=== PATIENT | male | born 1960 | race Caucasian/White ===

== ENCOUNTER → 2019-12-18 | Outpatient (CLI) | payer OTHER ==
--- NOTE | 2019-12-18 15:02 | XR ---
EXAMINATION TYPE: XR shoulder complete LT, 3 views DATE OF EXAM: 12/18/2019 Comparison: None Clinical History: 59-year-old male pain after fall from ladder S43.402A Findings: Moderate degenerative joint space narrowing with marginal spurring and subchondral sclerosis at the A C joint. Subacromial space is preserved. No acute fracture, subluxation, or dislocation. Impression: Moderate AC joint OA. No acute osseous abnormality seen.
== END | disposition home or self-care (01) ==
LOC: RADXRMAIN 14:31
PROVIDERS: ATTEND Emergency Medicine
DX: M19.012 Primary osteoarthritis, left shoulder (principal); S43.402A Unspecified sprain of left shoulder joint, initial encounter

== ENCOUNTER → 2019-12-26 | Outpatient (CLI) | payer OTHER ==
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
== END | disposition home or self-care (01) ==
LOC: RADMRIMAIN 15:10
PROVIDERS: ATTEND Emergency Medicine
DX: M75.122 Complete rotator cuff tear or rupture of left shoulder, not specified as traumatic (principal); M12.812 Other specific arthropathies, not elsewhere classified, left shoulder; S43.432A Superior glenoid labrum lesion of left shoulder, initial encounter

== ENCOUNTER 2022-07-25 11:02 | Emergency (ER) | payer OTHER, BC ==
[2022-07-25] MEDS ORDERED: DIPH,PERTUS(ACELL)TETVAC-LF 0.5 ML VIAL IM ONE (11:04)
[2022-07-25] MEDS ORDERED: HYDROmorphone 0.5 MG/0.5 ML SYRINGE IVP STA (11:12)
[2022-07-25 11:16] LABS: Basophils # (A) 0.1 k/uL (0-0.2); Basophils % (A) 1 %; Eosinophils # (A) 0.1 k/uL (0-0.7); Eosinophils % (A) 1 %; HCT 36.1 % (39.0-53.0); HGB 11.4 gm/dL (13.0-17.5); Hypochromasia Slight; Lymphocytes # (A) 3.7 k/uL (1.0-4.8); Lymphocytes % (A) 40 %; MCH 27.5 pg (25.0-35.0); MCHC 31.7 g/dL (31.0-37.0); Mean Platelet Volume 9.7; Monocytes # (A) 0.6 k/uL (0-1.0); Monocytes % (A) 6 %; Neutrophils # (A) 4.6 k/uL (1.3-7.7); Neutrophils % (A) 49 %; Platelet Count 287 k/uL (150-450); RBC 4.15 m/uL (4.30-5.90); RDW 14.4 % (11.5-15.5); WBC 9.4 k/uL (3.8-10.6)
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
[2022-07-25 11:28] LABS: ALT 28 U/L (4-49); AST 49 U/L (17-59); African American GFR (CKD) 85 (>60 ml/min/1.73 sqM); Albumin 3.6 g/dL (3.5-5.0); Alcohol <10 mg/dL; Alkaline Phosphatase 80 U/L (38-126); Anion Gap 11 mmol/L; Blood Urea Nitrogen 23 mg/dL (9-20); Calcium 8.8 mg/dL (8.4-10.2); Carbon Dioxide 21 mmol/L (22-30); Chloride 108 mmol/L (98-107); Glucose 118 mg/dL (74-99); Non-African American GFR(CKD) 73 (>60 ml/min/1.73 sqM); Potassium 3.8 mmol/L (3.5-5.1); Sodium 140 mmol/L (137-145); Total Bilirubin 0.5 mg/dL (0.2-1.3); Total Protein 6.3 g/dL (6.3-8.2)
[2022-07-25 11:35] VITALS: RESP 20
--- NOTE | 2022-07-25 11:36 | XR ---
EXAMINATION TYPE: XR pelvis AP view DATE OF EXAM: 07/25/2022 CLINICAL HISTORY: pain TECHNIQUE: Single view the pelvis is submitted. FINDINGS: No evidence for fracture, dislocation or bony lesion. Joint spaces are well-preserved. S I joints appear symmetric. IMPRESSION: 1. No acute fracture or dislocation seen. ICD 10 NO FRACTURE, INITIAL EVALUATION
--- NOTE | 2022-07-25 11:37 | XR ---
EXAMINATION TYPE: XR knee limited RT DATE OF EXAM: 07/25/2022 CLINICAL HISTORY: pain TECHNIQUE: Three views of the right knee are obtained. COMPARISON: None. FINDINGS: Angulated and displaced proximal tibial fracture with intra-articular extension. There is a ngulation noted laterally. Soft tissue deformity and joint effusion seen. IMPRESSION: Comminuted proximal tibial fracture with intra-articular extension.
--- NOTE | 2022-07-25 11:38 | XR ---
EXAMINATION TYPE: XR elbow limited RT DATE OF EXAM: 07/25/2022 CLINICAL HISTORY: pain TECHNIQUE: Single lateral view of the right elbow is submitted. COMPARISON: None. FINDINGS: There is no acute fracture/dislocation evident of the elbow. No abnormal fat pad signs ar e seen. The overlying soft tissue appears unremarkable. Olecranon spurring noted. IMPRESSION: Single view fails demonstrate evidence for displaced fracture or pathologic fat pads.
--- NOTE | 2022-07-25 11:39 | XR ---
EXAMINATION TYPE: XR chest 1V portable DATE OF EXAM: 07/25/2022 HISTORY: Shortness of breath. COMPARISON: None. TECHNIQUE: Single view of the chest is submitted. FINDINGS: Demonstrated are scattered senescent parenchymal change. There is no evidence for focal infiltrate. The heart is stable. Hilar and mediastinal structures are within normal limits. Degenerative changes are seen of the dorsal spine. Mid Right Clavicular fracture without significant displacement. IMPRESSION: 1. Chronic changes without evidence for acute pulmonary disease. 2.Mid Right Clavicular fracture without significant displacement.
[2022-07-25 11:42] LABS: INR 0.9 (<1.2); Prothrombin Time 10.1 sec (9.0-12.0)
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
[2022-07-25] MEDS ORDERED: HYDROmorphone 1 MG/ML 1 ML SYRINGE IVP STA (12:33)
[2022-07-25 15:05] VITALS: BP 114/71; PULSE 63; TEMP 97.8
== END 2022-07-25 17:46 | disposition other institution (70) ==
LOC: EC 11:02
DX: S82.141A Displaced bicondylar fracture of right tibia, initial encounter for closed fracture (principal); S22.41XA Multiple fractures of ribs, right side, initial encounter for closed fracture; S42.001A Fracture of unspecified part of right clavicle, initial encounter for closed fracture; S27.0XXA Traumatic pneumothorax, initial encounter; S70.211A Abrasion, right hip, initial encounter; S50.311A Abrasion of right elbow, initial encounter; S40.211A Abrasion of right shoulder, initial encounter; Z23 Encounter for immunization; V28.49XA Other motorcycle driver injured in noncollision transport accident in traffic accident, initial encounter; Y92.410 Unspecified street and highway as the place of occurrence of the external cause
CPT/HCPCS: 99285; 96374; 96375; 90471; 36415; 93005; 86900; 86901; 80053; 84484; 85025; 85610; 85730; 86850; 80320; 72170; 73070; 73560; 71045; 72125; 70450; 71260; 74177; 73700; 90715; 29505; J1170 ×2; Q9967